=== PATIENT | female | born 1950 | race Caucasian/White ===

== ENCOUNTER 2021-10-30 10:10 | Outpatient (CLI) | payer MEDICARE, SELFPAY ==
--- NOTE | 2021-10-30 10:27 | MM_ITS ---
WS: [id number] Bilateral screening 3D tomosynthesis digital mammogram, 10/30/2021 Clinical Data: SCREENING Comparison: 04/02/2016, 04/22/2013. Findings: The breast parenchymal pattern shows heterogeneous density. No spiculated masses or clustered calcifi cations are seen. There are no secondary signs of carcinoma. MM/[place] [id number] Impression: 1. Negative bilateral mammogram unchanged. 2. Recommend annual screening mammograms. BIRADS: 1-Negative FOLLOW UP: 1 Year Follow-up The CAD checker in was used.
== END 2021-10-30 10:11 | disposition home or self-care (01) ==
LOC: RAD 10:13
PROVIDERS: Family Provider Family Medicine; Visit Provider Family Medicine
DX: Z12.31 Encounter for screening mammogram for malignant neoplasm of breast (principal)
CPT/HCPCS: 77063; 77067

== ENCOUNTER → 2022-04-07 15:06 | Outpatient (BNVA) | payer MEDICARE, SELFPAY | PROVIDERS: Visit Provider Specialist | DX: M25.562 Pain in left knee (principal) | CPT/HCPCS: 73560; 73565; 99204 ==

== ENCOUNTER 2022-06-22 09:13 | Emergency (ER) | payer MEDICARE, SELFPAY ==
[2022-06-22] VITALS (15 sets, daily range): BP systolic 123–142; BP diastolic 73–94; PULSE 65–82; RESP 15–22; TEMP 36.7; O2SAT 95–99
--- NOTE | 2022-06-22 09:27 | CTR_ITS ---
PROCEDURE INFORMATION: Exam: CT Head Without Contrast Exam date and time: 06/22/2022 9:33 AM Age: 71 years old Clinical indication: Injury or trauma; Fall; Blunt trauma (contusions or hematomas); Additional info: Fall with memory loss TECHNIQUE: Imaging protocol: Computed tomography of the head without contrast. Radiation optimization: All CT scans at this facility use at least one of these dose optimization techniques: automated exposure control; mA and/or kV adjustment per patient size (includes targeted exams where dose is matched to clinical indication); or iterative reconstruction. COMPARISON: No relevant prior studies available. RADIATION DOSE METRICS: Total DLP (mGy-cm): 1077.48 FINDINGS: Brain: Incidental left globus pallidus mild calcification. No hemorrhage. Unremarkable white matter. No mass effect. Ventricles: No hydrocephalus or evidence of increased intracranial pressure. Paranasal sinuses: Visualized sinuses are unremarkable. No fluid levels. Mastoid air cells: Visualized mastoid air cells are well aerated. Bones/joints: No acute abnormality. No acute fracture. Soft tissues: Unremarkable. Vasculature: Atherosclerotic calcifications are present involving the carotid artery siphons bilaterally and the right vertebral artery. CT/CT head wo con* [id number] IMPRESSION: No acute intracranial injury identified.
--- NOTE | 2022-06-22 09:34 | CTR_ITS ---
PROCEDURE INFORMATION: Exam: CT Cervical Spine Without Contrast Exam date and time: 06/22/2022 9:37 AM Age: 71 years old Clinical indication: Injury or trauma; Fall; Blunt trauma TECHNIQUE: Imaging protocol: Computed tomography of the cervical spine without contrast. Radiation optimization: All CT scans at this facility use at least one of these dose optimization techniques: automated exposure control; mA and/or kV adjustment per patient size (includes targeted exams where dose is matched to clinical indication); or iterative reconstruction. COMPARISON: CT head wo con* [id number] 06/22/2022 9:33 AM RADIATION DOSE METRICS: Total DLP (mGy-cm): 179.14 FINDINGS: Bones/joints: No fracture. Mild left predominant posterolateral C2-C3 spondylosis. Moderately severe left C2-C3 neural foraminal narrowing. Moderate left C3-C4 neural foraminal narrowing (uncovertebral). Slight C3-C4 anterolisthesis. Mild right predominant C4-C5 spondylosis. Moderately severe bilateral C4-C5 neural foraminal narrowing. C5-6 degenerative disc disease with moderate C5-C6 spondylosis. Severe bilateral C5-C6 neural foraminal narrowing. C6-7 degenerative disc disease with severe C6-C7 spondylosis. The C6-C7 AP bony spinal canal measures 9.9 mm. Moderately severe bilateral C6-C7 neural foraminal narrowing. Lungs: Lung apices are normal. Thyroid: Left thyroid hypodensity measuring 9.7 mm. No specific follow-up imaging is recommended. Soft tissues: Unremarkable. CT/CT cervical spin wo con* [id number] IMPRESSION: 1. Degenerative changes as above. 2. No acute cervical spinal bony injury identified.
--- NOTE | 2022-06-22 09:45 | PC.NURSE ---
ESCORTED PT TO AND FROM CT VIA WC.
--- NOTE | 2022-06-22 09:53 | ECG_ITS ---
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 Measurements Intervals [place] Rate: 59 P: 61 OR: 141 QRS: 54 QRSD: 92 T: 64 QT: 387 QTc: 385 Interpretive Statements SINUS BRADYCARDIA No previous ECG available for comparison Electronically Signed On 06-24-2022 7:46:22 ENGRAVER MACHINE by Breezy Hinds M.D. [id number]
--- NOTE | 2022-06-22 10:04 | W.ED.FALL ---
HPI - Fall General: Chief Complaint: Fall Stated Complaint: fall, confusion, lack of memory Time Seen by Provider: 06/22/22 09:56 History of Present Illness: 71-year-old female who presents after a fall. Reportedly the patient fell off a stepstool in her laundry room. The patient did hit her head. She unknown whether she had loss of consciousness. She is amnestic to everything this morning. She complains of a headache but denies any other complaints. She was ambulatory after the event. No prior history of syncope. Review of Systems Narrative: Headache, otherwise negative as per HPI Physical Exam Const: COMMON NORMALS: no acute distress, patient oriented x3 and alert ORIENTATION/CONSCIOUSNESS: Yes oriented to person, Yes oriented to place and Yes oriented to time HENMT: OTHER: Hematoma at the posterior upper scalp area, tenderness in this region. No hemotympanum. Oropharynx is clear. No malocclusion. Eye: OTHER: Pupils equal, round and reactive to light. Extraocular movements are intact. Neck/C-Spine: OTHER: No midline tenderness, no pain with range of motion. Chest: OTHER: Chest is nontender Resp: OTHER: Normal respiratory effort, breath sounds are equal. Cardio: OTHER: Heart rate is regular GI: OTHER: Abdomen is soft, nontender. Back/Pelvis: OTHER: Pelvis is stable and nontender. No thoracic or lumbar spine tenderness. Extremity: OTHER: Small area of abrasion/ecchymosis on the tip of the left elbow, full range of motion of both upper extremities without discomfort. Bilateral lower extremities are nontender with full range of motion. Neuro: COMMON NORMALS: patient oriented x3, moves all extremities, no focal motor deficits and no sensory deficits noted SENSORIUM/ORIENTATION: Yes alert, Yes oriented to person, Yes oriented to place and Yes oriented to time Course Vital Signs: Vital signs: Vital Signs Temperature 98.1 F 06/22/22 09:19 Pulse Rate 65 06/22/22 10:00 Respiratory Rate 21 H 06/22/22 10:00 Blood Pressure 142/94 06/22/22 10:00 Pulse Oximetry 96 06/22/22 10:00 Oxygen Delivery Me thod 06/22/22 09:19 MDM - Fall Medical Decision Making 71 female who presents after falling off a stool. Unknown if she had loss of consciousness. Patient is amnestic to the event. She does have short-term memory loss as well as repetitive questioning. Neurologic exam is otherwise intact. She is alert and oriented x3. She has a hematoma on the posterior scalp scalp but no other injury. She has no C-spine tenderness. Differential includes closed head injury, skull fracture, intracranial hemorrhage, subdural hematoma, epidural hematoma, seizure, syncope. she had an EKG performed which is unremarkable, CBC and CMP are unremarkable. Glucose is normal. CT head shows no acute injury. CT of her cervical spine shows some degenerative changes but no acute fracture. Patient is neurologically intact other than her memory loss and I feel stable for discharge home with head injury precautions. Lab Data 06/22/22 09:57 06/22/22 09:[address] 06/22/22 09:27 IMPRESSION: No acute intracranial injury identified. Cervical Spine CT 06/22/22 09:34 IMPRESSION: 1. Degenerative changes as above. 2. No acute cervical spinal bony injury identified. Laboratory Results WBC 5.9 10^3/uL (4.0-10.0) 06/22/22 09:57 RBC 4.38 10^6/uL (4.1-5.3) 06/22/22 09:57 Hgb 13.8 g/dL (11.5-15.3) 06/22/22 09:57 Hct 43.3 % (37.0-47.0) 06/22/22 09:57 MCV 98.9 fl (81-99) 06/22/22 09:57 MCH 31.5 pg (28.0-34.0) 06/22/22 09:57 MCHC 31.9 g/dL (30.0-36.0) 06/22/22 09:57 RDW 11.5 % (12.1-15.1) L 06/22/22 09:57 Plt Count 188 10^3/cmm (130-400) 06/22/22 09:57 MPV 11.4 fL (7.4-10.4) H 06/22/22 09:57 Neut % (Auto) 70.0 % 06/22/22 09:57 Lymph % (Auto) 20.7 % 06/22/22 09:57 [place] % (Auto) 5.9 % 06/22/22 09:57 Eos % (Auto) 2.2 % 06/22/22 09:57 Baso % (Auto) 0.7 % 06/22/22 09:57 Neut # (Auto) 4.12 10^3/uL (1.8-7.7) 06/22/22 09:57 Lymph # (Auto) 1.2 10^3/uL (0.8-4.8) 06/22/22 09:57 [place] # (Auto) 0.4 10^3/uL (0.2-0.9) 06/22/22 09:57 Eos # (Auto) 0.1 10^3/uL (0.0-0.8) 06/22/22 09:57 Baso # (Auto) 0.0 10^3/uL (0.0-0.1) 06/22/22 09:57 Nucleated RBC % (auto) 0 % 06/22/22 09:57 Nucleated RBCs # 0.0 /100WBC 06/22/22 09:57 Sodium 140 mmol/L (136-145) 06/22/22 09:57 Potassium 4.0 mmol/L (3.5-5.1) 06/22/22 09:57 Chloride 104 mmol/L (98-107) 06/22/22 09:57 Carbon Dioxide 26 mmol/L (22-29) 06/22/22 09:57 Anion Gap 14.0 (5-19) 06/22/22 09:57 BUN 13 mg/dL (8-23) 06/22/22 09:57 Creatinine 0.7 mg/dL (0.5-0.9) 06/22/22 09:57 GFR Calculation Not Reportable 06/22/22 09:57 Glucose 97 mg/dL (65-115) 06/22/22 09:57 Calculated Osmolality 290 mOsm/kg (285-295) 06/22/22 09:57 Calcium 9.5 mg/dL (8.5-10.5) 06/22/22 09:57 Total Bilirubin 0.4 mg/dL (0.15-1.2) 06/22/22 09:57 AST 20 U/L (0-32) 06/22/22 09:57 ALT 15 U/L (0-33) 06/22/22 09:57 Alkaline Phosphatase 74 U/L (35-105) 06/22/22 09:57 Total Protein 7.5 g/dL (6.6-8.7) 06/22/22 09:57 Albumin 4.4 g/dL (3.5-5.2) 06/22/22 09:57 Globulin 3.1 g/dL (1.3-4.6) 06/22/22 09:57 EKG Data EKG 1: I personally reviewed and interpreted this EKG as follows: EKG interpretation date: 06/22/22 EKG interpretation time: 10:00 Interpretation: Normal sinus rhythm, heart rate 59, no ST segment elevation or depression. No ectopy. Discharge Plan Discharge Patient Disposition: Home Clinical Impression: Concussion Condition: Stable Prescriptions: No Action No Known Home Medications Discharge Orders: Discharge ED (Routine); Ordered 06/22/22 Ordered By: Amanda Irvin Referrals: Anant Odom MD [Primary Care Provider] - Discharge Diet: Advance as tolerated Discharge Activity: Increase activity as tolerated Patient Instructions: Concussion/Head Injury - Adult, Post Concussion Syndrome (ED), Opioid Safety, Pain Management Activity Restrictions/Additional Instructions: Take Tylenol or ibuprofen as needed for headache. Home to rest. Avoid strenuous activity. Return if worsening symptoms, worsening headache, persistent vomiting, any focal neurological deficits. Follow-up this week with your primary care doctor. Coding Level of Care Code ED Visual Lead for Chg Fwd Exam Expanded Problem Focused Medical Decision Making Moderate Complexity
[2022-06-22 10:16] LABS: Basophils % 0.7 %; Eosinophils # 0.1 10^3/uL (0.0-0.8); Eosinophils % 2.2 %; Hematocrit 43.3 % (37.0-47.0); Hemoglobin 13.8 g/dL (11.5-15.3); Lymphocytes # 1.2 10^3/uL (0.8-4.8); Lymphocytes % 20.7 %; Mean Corpuscular HGB Conc 31.9 g/dL (30.0-36.0); Mean Corpuscular Hemoglobin 31.5 pg (28.0-34.0); Mean Corpuscular Volume 98.9 fl (81-99); Mean Platelet Volume 11.4 fL (7.4-10.4); Monocytes # 0.4 10^3/uL (0.2-0.9); Monocytes % 5.9 %; Neutrophils # 4.12 10^3/uL (1.8-7.7); Nucleated Red Blood Cells % 0 %; Platelet Count 188 10^3/cmm (130-400); Red Blood Count 4.38 10^6/uL (4.1-5.3); Red Cell Distribution Width 11.5 % (12.1-15.1); White Blood Count 5.9 10^3/uL (4.0-10.0)
[2022-06-22 10:44] LABS: Alanine Aminotransferase 15 U/L (0-33); Albumin Level 4.4 g/dL (3.5-5.2); Alkaline Phosphatase 74 U/L (35-105); Aspartate Amino Transferase 20 U/L (0-32); Blood Urea Nitrogen 13 mg/dL (8-23); Calcium 9.5 mg/dL (8.5-10.5); Carbon Dioxide 26 mmol/L (22-29); Chloride 104 mmol/L (98-107); Creatinine Clr Calc Pharmacy 49.4536; Globulin 3.1 g/dL (1.3-4.6); Glucose 97 mg/dL (65-115); Osmolality Calculated 290 mOsm/kg (285-295); Sodium 140 mmol/L (136-145); Total Bilirubin 0.4 mg/dL (0.15-1.2); Total Protein 7.5 g/dL (6.6-8.7)
== END 2022-06-22 13:13 | disposition home or self-care (01) ==
PROVIDERS: Physician Assistant; Emergency Provider Emergency Medicine; PCP Family Medicine
DX: S06.0XAA Concussion with loss of consciousness status unknown, initial encounter (principal); W07.XXXA Fall from chair, initial encounter
CPT/HCPCS: 70450; 72125; 80053; 85025; 93005; 99285

== ENCOUNTER 2022-07-26 08:25 | Emergency (ER) | payer MEDICARE, SELFPAY ==
[2022-07-26 08:39] VITALS: BP 133/79; PULSE 87; TEMP 36.7; O2SAT 97; BMI 22.6
--- NOTE | 2022-07-26 09:05 | CTR_ITS ---
PROCEDURE INFORMATION: Exam: CT Head Without Contrast Exam date and time: 07/26/2022 9:53 AM Age: 71 years old Clinical indication: Pain; Headache; Additional info: New onset severe headaches 2 weeks ago, worse in last 12 hrs TECHNIQUE: Imaging protocol: Computed tomography of the head without contrast. Radiation optimization: All CT scans at this facility use at least one of these dose optimization techniques: automated exposure control; mA and/or kV adjustment per patient size (includes targeted exams where dose is matched to clinical indication); or iterative reconstruction. REPORTING DATA: Count of CT and Cardiac NM exams in prior 12 months: This patient has received 3 known CTs and 0 known cardiac nuclear medicine studies in the 12 months prior to the current study. COMPARISON: CT head wo con* [id number] 06/22/2022 9:33 AM RADIATION DOSE METRICS: Total DLP (mGy-cm): 623.85 FINDINGS: Brain: Interval development of moderate-large subacute subdural hematoma adjacent to the left cerebral hemisphere measuring up t 1.7 cm in diameter with diffuse sulcal effacement of the left cerebral hemisphere and 1.1 cm contralateral midline shift to the right. Cerebral ventricles: Ventricles are displaced to the right but otherwise unremarkable. No hydrocephalus. Paranasal sinuses: Visualized sinuses are unremarkable. No fluid levels. Mastoid air cells: Visualized mastoid air cells are well aerated. Bones/joints: Unremarkable. No acute fracture. Soft tissues: Unremarkable. CT/CT head wo con* [id number] IMPRESSION: Interval development of moderate-large subacute left subdural hematoma with significant mass effect and 1.1 cm contralateral midline shift.
[2022-07-26 09:13] VITALS: BP 130/74; PULSE 86; RESP 18; O2SAT 97
--- NOTE | 2022-07-26 09:15 | W.ED.HA ---
HPI - Headache General: Chief Complaint: Headache Stated Complaint: Head pain, previous head injury 3 weeks ago Time Seen by Provider: 07/26/22 08:33 History of Present Illness: 71-year-old female with no significant medical history reports that she has had a headache for 2 weeks. It has not been constant but has been the majority of the time. Over the last 24 hours her headache has increased. She did have a head injury on June 22, 2021. She did not have any findings on a CT scan of her head at that time. She did have amnesia and probable loss of consciousness. Patient reports that she had a headache for few days after the trauma but it resolved. 2 weeks ago it started coming back. She has no history of chronic headaches. She does not have light sensitivity. It is worse with any movement of her head. She has vomited twice. She has normal mental status, strength, coordination, sensation, speech. She denies any changes in her vision. She is not on any blood thinners. She has had no recurrent trauma. Patient has very little medical history. She takes vitamin D. Associated symptoms: Reports nausea and vomiting; Deny chest pain, confusion, fever(s), rash or syncope Review of Systems General: Reports: 10 or more systems reviewed and unremarkable except in HPI and below Const: Denies: fever(s), chills or body aches Eyes: Denies: change in vision ENMT: Denies: throat pain Card: Denies: chest pain, edema or syncope Resp: Denies: dyspnea or productive cough GI: Reports: nausea and vomiting; Denies: abdominal pain, hematemesis or diarrhea : Denies: flank pain, dysuria or urinary frequency Musc: Denies: neck pain, back pain, extremity pain or extremity swelling Skin/Breast: Denies: rash or erythema Neuro: Reports: headache(s), dizziness and difficulty communicating thoughts; Denies: numbness in extremities, weakness in extremities, sensory changes, lack of coordination, difficulty walking, confusion, behavioral changes, Slurred speech present or seizure-like activity Physical Exam Const: COMMON NORMALS: patient oriented x3, no limitations, healthy appearing, alert and well nourished EXAM LIMITATIONS: no altered mental status HENMT: COMMON NORMALS: normocephalic, atraumatic, external ears normal and Normal external nose present HEAD & SCALP: normocephalic and atraumatic NOSE: Normal external nose present and Normal nares present EXTERNAL EAR: Yes external ears normal MOUTH: no muffled voice Eye: COMMON NORMALS: Equal, round and reactive pupils present, EOMs intact bilaterally, conjunctivae normal, no scleral icterus and normal visual dejesus by confrontation CONJUNCTIVA: Yes conjunctivae normal PUPIL: Yes Equal, round and reactive pupils present Neck/C-Spine: COMMON NORMALS: no JVD GENERAL: Yes normal visual inspection and Yes trachea midline Resp: COMMON NORMALS: normal respiratory effort, No use of accessory muscles and clear to auscultation bilaterally AUSCULTATION: clear to auscultation bilaterally Cardio: COMMON NORMALS: no JVD, regular rate and regular rhythm RATE: regular rate RHYTHM: regular rhythm GI: COMMON NORMALS: Soft to palpation and non-tender PALPATION: Yes Soft to palpation and No Guarding due to palpation present (GI) Extremity: COMMON NORMALS: normal to inspection Neuro: COMMON NORMALS: patient oriented x3, CN's II-XII intact bilaterally, moves all extremities, no focal motor deficits and no sensory deficits noted SENSORIUM/ORIENTATION: Yes alert SPEECH: speech normal SENSORY EXAM: No sensory level loss detected MOTOR EXAM: 5/5 motor strength present throughout, no tremor noted, no asterixis, Motor fasciculations not present, Normal motor muscle tone present throughout and Motor abnormalities not present Psych: COMMON NORMALS: mental status grossly normal, Normal thought process present, cooperative, normal affect and speech normal SPEECH: Yes normal speech THOUGHT PROCESS: Normal thought process present Skin: COMMON NORMALS: no rashes or lesions noted, turgor normal and no jaundice GENERAL SKIN EXAM: no rashes or lesions noted and turgor normal Course Vital Signs: Vital signs: Vital Signs Temperature 98.1 F 07/26/22 08:39 Pulse Rate 87 07/26/22 08:39 Blood Pressure 133/79 07/26/22 08:39 Pulse Oximetry 97 07/26/22 08:39 Oxygen Delivery Me thod 07/26/22 08:39 MDM - Headache Medical Decision Making 71-year-old female presents the emergency department with headache. She never had headache prior to the onset of her head injury back on June 22. The headache after her head injury lasted a few days but went away. It came back about 2 weeks ago. She has not had a repeat scan since then. Differential diagnosis includes delayed onset subdural, migraine, postconcussion syndrome, tension headache, aneurysm, dural venous sinus thrombosis, mass, subarachnoid hemorrhage, and multiple others. Update. I was called to the CT scanner. After the CT without contrast was performed, the radiology receptionist noticed a apparent subdural. I reviewed the scan and have noted a subdural up to 15 mm thick with approximately 1 cm of [id number]-fb-caohk shift. There is a subacute appearing gravity dependent portion of blood in the left cerebral convexity. We immediately contacted [facility]. They have excepted to the emergency department. No doc to doc was requested. Dr. House is the accepting physician per the transfer center. Patient will go to the emergency department. She is not anticoagulated. She has GCS 15 with a normal neurologic exam at this time. Fortunately, I do not see any hyperacute blood on CT. Patient and family informed of diagnosis and need for transfer. Lab Data 07/26/22 09:30 07/26/22 09:20 Laboratory Results WBC 8.8 10^3/uL (4.0-10.0) 07/26/22 09:30 RBC 4.22 10^6/uL (4.1-5.3) 07/26/22 09:30 Hgb 13.1 g/dL (11.5-15.3) 07/26/22 09:30 Hct 41.1 % (37.0-47.0) 07/26/22 09:30 MCV 97.4 fl (81-99) 07/26/22 09:30 MCH 31.0 pg (28.0-34.0) 07/26/22 09:30 MCHC 31.9 g/dL (30.0-36.0) 07/26/22 09:30 RDW 11.9 % (12.1-15.1) L 07/26/22 09:30 Plt Count 212 10^3/cmm (130-400) 07/26/22 09:30 MPV 11.0 fL (7.4-10.4) H 07/26/22 09:30 Neut % (Auto) 91.3 % 07/26/22 09:30 Lymph % (Auto) 5.4 % 07/26/22:30 [place] % (Auto) 2.7 % 07/26/22 09:30 Eos % (Auto) 0.0 % 07/26/22 09:30 Baso % (Auto) 0.3 % 07/26/22 09:30 Neut # (Auto) 7.99 10^3/uL (1.8-7.7) H 07/26/22 09:30 Lymph # (Auto) 0.5 10^3/uL (0.8-4.8) L 07/26/22 09:30 [place] # (Auto) 0.2 10^3/uL (0.2-0.9) 07/26/22 09:30 Eos # (Auto) 0.0 10^3/uL (0.0-0.8) 07/26/22 09:30 Baso # (Auto) 0.0 10^3/uL (0.0-0.1) 07/26/22 09:30 Nucleated RBC % (auto) 0 % 07/26/22 09:30 Nucleated RBCs # 0.0 /100WBC 07/26/22 09:30 Sodium 136 mmol/L (136-145) 07/26/22 09:20 Potassium 3.9 mmol/L (3.5-5.1) 07/26/22 09:20 Chloride 99 mmol/L (98-107) 07/26/22 09:20 Carbon Dioxide 24 mmol/L (22-29) 07/26/22 09:20 Anion Gap 16.9 (5-19) 07/26/22 09:20 BUN 15 mg/dL (8-23) 07/26/22 09:20 Creatinine 0.7 mg/dL (0.5-0.9) 07/26/22 09:20 GFR Calculation Not Reportable 07/26/22 09:20 Calcium 9.7 mg/dL (8.5-10.5) 07/26/22 09:20 C-Reactive Protein 3.0 mg/L (0.0-4.9) 07/26/22 09:20 Discharge Plan Discharge Patient Disposition: Transfer to ED Clinical Impression: Subdural hemorrhage Condition: Fair Prescriptions: No Action No Known Home Medications Discharge Orders: Transfer Out of Facility (Order); Ordered 07/26/22 Ordered By: Rafael Crump Referrals: Anant Odom MD [Primary Care Provider] - Coding Level of Care Code ED Roof Mechanic for Chg Fwd
[2022-07-26 09:38] LABS: Basophils % 0.3 %; Hematocrit 41.1 % (37.0-47.0); Hemoglobin 13.1 g/dL (11.5-15.3); Lymphocytes # 0.5 10^3/uL (0.8-4.8); Lymphocytes % 5.4 %; Mean Corpuscular HGB Conc 31.9 g/dL (30.0-36.0); Mean Corpuscular Volume 97.4 fl (81-99); Monocytes # 0.2 10^3/uL (0.2-0.9); Monocytes % 2.7 %; Neutrophils # 7.99 10^3/uL (1.8-7.7); Neutrophils % 91.3 %; Nucleated Red Blood Cells % 0 %; Platelet Count 212 10^3/cmm (130-400); Red Blood Count 4.22 10^6/uL (4.1-5.3); Red Cell Distribution Width 11.9 % (12.1-15.1); White Blood Count 8.8 10^3/uL (4.0-10.0)
[2022-07-26] MEDS: ketorolac 30 mg/mL INJ 15 MG IVP (09:44)
[2022-07-26] MEDS: prochlorperazine 10 mg/2 mL Inj 5 MG IVP (09:45)
[2022-07-26] MEDS: diphenhydrAMINE 50 mg/mL SDV 1mL 25 MG IVP (09:48)
[2022-07-26] MEDS: sodium chloride 0.9% 1,000 ML 999 ML IV (09:49)
[2022-07-26 09:58] LABS: Anion Gap 16.9 (5-19); Blood Urea Nitrogen 15 mg/dL (8-23); Calcium 9.7 mg/dL (8.5-10.5); Carbon Dioxide 24 mmol/L (22-29); Chloride 99 mmol/L (98-107); Glucose 117 mg/dL (65-115); Osmolality Calculated 284 mOsm/kg (285-295); Potassium 3.9 mmol/L (3.5-5.1); Sodium 136 mmol/L (136-145)
[2022-07-26 10:15] LABS: Erythrocyte Sedimentation Rate 8 mm/hr (0-15)
--- NOTE | 2022-07-26 10:15 | PC.NURSE ---
transfer report called to Adeola Quintana RN at [facility]
[2022-07-26 10:30] VITALS: BP 152/98; PULSE 89; O2SAT 98
[2022-07-26] MEDS: acetaminophen 1,000 MG/100 ML PIGGYBACK 400 MG IV (10:54)
== END 2022-07-26 10:59 ==
PROVIDERS: Emergency Provider Emergency Medicine; PCP Family Medicine
DX: S06.5XAA Traumatic subdural hemorrhage with loss of consciousness status unknown, initial encounter (principal); X58.XXXA Exposure to other specified factors, initial encounter
CPT/HCPCS: 70450; 80048; 85025; 85651; 86140; 96374; 96375; 99285; J0131; J0780; J1200; J1885; J7030

== ENCOUNTER 2022-09-04 06:43 | Outpatient (CLI) | payer MEDICARE, SELFPAY ==
--- NOTE | 2022-09-04 | CT_ITS ---
WS: [id number] CT HEAD NONCONTRAST HISTORY: SUBDURAL HEMATOMA TECHNIQUE: Contiguous axial imaging performed through the brain in 2.5 mm imaging. Bone and soft tiss ue windows. Sagittal and coronal reformats reviewed. All CT scans at [facility] use at least one of these dose optimization techniques: automated exposure control; mA and/or kV adjustment per pa tient size (includes targeted exams where dose is matched to clinical indication); or iterative recon struction. DLP: 958.58 mGy.cm COMPARISON: 07/26/2022 Recently described mildly complex LEFT frontal subdural hematoma has resolved. There is no midline sh ift remaining. Linear low-attenuation in the subdural space over the LEFT frontal bone is probably an overlying cortical vein. There are no acute blood products. Mild atrophy and small vessel ischemic disease. Ventricles: Normal size with no hydrocephalus. Paranasal sinuses: As visualized are clear. Mastoid air cells: Well pneumatized. Calvarium and scalp: LEFT frontal leroy hole from the LEFT frontal subdural hematoma drainage. CT/CT head wo con* [id number] IMPRESSION: 1. No acute intracranial hemorrhage or edema. 2. Resolved LEFT frontal subdural mixed hematoma. 3. Resolved midline shift and cerebral edema.
== END 2022-09-04 06:44 | disposition home or self-care (01) ==
LOC: RAD 06:46
PROVIDERS: PCP Family Medicine; Visit Provider Nurse Practitioner Family
DX: S06.5XAA Traumatic subdural hemorrhage with loss of consciousness status unknown, initial encounter (principal); X58.XXXA Exposure to other specified factors, initial encounter
CPT/HCPCS: 70450

== ENCOUNTER 2023-01-16 09:23 | Outpatient (CLI) | payer MEDICARE, SELFPAY ==
--- NOTE | 2023-01-16 09:29 | MM_ITS ---
WS: [id number] Bilateral screening 3D tomosynthesis digital mammogram, 01/16/2023 Clinical Data: SCREENING Comparison: 10/30/2021, 04/02/2016, 04/22/2013. Findings: The breast parenchymal pattern shows heterogeneous density. No spiculated masses or clustered calcifi cations are seen. There are no secondary signs of carcinoma. Impression: 1. Negative bilateral mammogram unchanged. 2. Recommend annual screening mammograms. MM/[place] [id number] BIRADS: 1-Negative FOLLOW UP: 1 Year Follow-up The CAD aircraft delivery checker was used.
== END 2023-01-16 09:24 | disposition home or self-care (01) ==
PROVIDERS: PCP Family Medicine; Visit Provider Family Medicine
DX: Z12.31 Encounter for screening mammogram for malignant neoplasm of breast (principal)
CPT/HCPCS: 77063; 77067

== ENCOUNTER 2024-01-20 08:46 | Outpatient (CLI) | payer MEDICARE, SELFPAY ==
--- NOTE | 2024-01-20 08:55 | MM_ITS ---
WS: [id number] Bilateral screening 3D tomosynthesis digital mammogram, 01/20/2024 Clinical Data: SCREENING Comparison: 01/16/2023, 10/30/2021, 04/02/2016, 04/22/2013. Findings: The breast parenchymal pattern shows heterogeneous density. There is a density in the medial aspect o f the left breast which may be seen on the MLO view posterior to the central tissue density. No spi culated masses or clustered calcifications are seen. There are no secondary signs of carcinoma. MM/[place] [id number] Impression: 1. Density 0.7 cm in the medial aspect of the left breast possibly seen on the LMLO view. 2. Recommend ML view of the left breast, repeat cc view with compression image of the medial aspect of the left breast and left breast ultrasound. BIRADS: 0-Incomplete: Need additional imaging evaluation FOLLOW UP: See Report The CAD lumber checker was used.
== END 2024-01-20 08:47 | disposition home or self-care (01) ==
LOC: RAD 08:49
PROVIDERS: PCP Family Medicine; Visit Provider Family Medicine
DX: Z12.31 Encounter for screening mammogram for malignant neoplasm of breast (principal); R92.323 Mammographic fibroglandular density, bilateral breasts
CPT/HCPCS: 77063; 77067

== ENCOUNTER 2024-03-02 07:47 | Outpatient (CLI) | payer MEDICARE, SELFPAY ==
--- NOTE | 2024-03-02 07:49 | MM_ITS ---
WS: [email or web address] VIEWS: MLO, CC, and ML views LEFT breast. 3D digital tomosynthesis is also included in this exam. Comparison made with prior exam of 04/02/2016, 10/30/2021, 01/16/2023.. Findings: The breasts are heterogeneously dense, which may obscure small masses. Stable appearing nodular densities seen in the medial LEFT breast when compared to prior studies. No suspicious calcification or architectural distortion in the LEFT breast. Regional ultrasound of the m edial LEFT breast recommended for follow-up. MM/MM diag LT tomosynthesis [id number] Impression: BI-RADS: 0 - Incomplete: Need additional imaging evaluation FOLLOW-UP: Need Additional Imaging This mammogram was also analyzed by the Computer Aided Detection System R2 Imag e Forensic Science Technician.
--- NOTE | 2024-03-02 07:49 | US_ITS ---
WS: [email or web address] Exam: US breast LT limited* [id number] Date/Time of Exam: 03/02/2024 8:28 AM Reason For Exam: ABNORMAL MAMMO Regional ultrasound of the LEFT breast is performed from the 6:00 to the 10 o'clock position. There was no sign of suspicious mass or nodule. No cysts were identified. Recommendations: Continue yearly screening mammography. US/US breast LT limited* [id number] IMPRESSION: 1. No suspicious ultrasound finding in the LEFT breast from the 6:00 to the 10 o'clock position. BI-RADS Category 3.
== END 2024-03-02 07:48 | disposition home or self-care (01) ==
LOC: RAD 07:47
PROVIDERS: PCP Family Medicine; Visit Provider Family Medicine
DX: R92.8 Other abnormal and inconclusive findings on diagnostic imaging of breast (principal); R92.333 Mammographic heterogeneous density, bilateral breasts; N63.25 Unspecified lump in the left breast, overlapping quadrants
CPT/HCPCS: 76642; 77061; G0279

== ENCOUNTER → 2024-03-08 09:45 | Outpatient (BNVA) | payer MEDICARE, SELFPAY | PROVIDERS: PCP Family Medicine; Visit Provider Nurse Practitioner Family | DX: L57.0 Actinic keratosis (principal); L82.1 Other seborrheic keratosis; D22.5 Melanocytic nevi of trunk; L81.4 Other melanin hyperpigmentation; L57.8 Other skin changes due to chronic exposure to nonionizing radiation; Z85.828 Personal history of other malignant neoplasm of skin | CPT/HCPCS: 17000; 99203 ==

== ENCOUNTER 2024-09-07 07:43 | Outpatient (CLI) | payer MEDICARE, SELFPAY ==
--- NOTE | 2024-09-07 07:48 | US_ITS ---
WS: [id number] Exam: US breast LT limited* [id number] Date/Time of Exam: 09/07/2024 8:01 AM Reason For Exam: ABNORMAL MAMMO Comparison 03/02/2024. Regional ultrasound of the LEFT breast was performed from the 6:00 to the 10 o'clock position. There was no sign of suspicious solid mass or nodule. No cysts were identified. Recommendations: Continue yearly screening mammography. US/US breast LT limited* [id number] IMPRESSION: 1. No suspicious ultrasound finding identified. BI-RADS Category 2.
== END 2024-09-07 07:44 | disposition home or self-care (01) ==
LOC: RAD 07:45
PROVIDERS: PCP Family Medicine; Visit Provider Family Medicine
DX: R92.8 Other abnormal and inconclusive findings on diagnostic imaging of breast (principal)
CPT/HCPCS: 76642

== ENCOUNTER 2025-03-03 08:19 | Outpatient (CLI) | payer MEDICARE, SELFPAY ==
--- NOTE | 2025-03-03 08:27 | MM_ITS ---
WS: [id number] SCREENING DIGITAL BREAST TOMOSYNTHESIS MAMMOGRAM WITH CAD HISTORY: SCREENING COMPARISON: 03/02/2024, 01/20/2024, 10/30/2021 Bilateral CC and MLO with tomosynthesis and synthetic mammography submitted. Computer aided detection analyzed. Breast composition: The breasts are heterogeneously dense, which may obscure small masses. Bilateral scattered asymmetries. Asymmetry in the posterior central RIGHT breast seen on the RIGHT MLO projection. This asymmetry appears slightly more prominent as compared to prior studies. There is an additional irregular asymmetry seen on the LEFT MLO projection in the central breast. Similar asymmetry in the medial posterior LEFT breast may be the corresponding asymmetry. Additional imaging recommended. MM/MM scr BI tomosynthesis [id number] IMPRESSION: BI-RADS: 0 - Incomplete: Need additional imaging evaluation FOLLOW UP: Need Additional Imaging RIGHT breast: Spot compression views (MLO). True ML. Ultrasound to follow if ab normality persists. LEFT breast: Spot compression views (CC and MLO). True ML. Ultrasound to follow if abnormality persists.
== END 2025-03-03 08:20 | disposition home or self-care (01) ==
LOC: RAD 08:20
PROVIDERS: PCP Family Medicine; Visit Provider Family Medicine
DX: Z12.31 Encounter for screening mammogram for malignant neoplasm of breast (principal); R92.333 Mammographic heterogeneous density, bilateral breasts; N64.89 Other specified disorders of breast
CPT/HCPCS: 77063; 77067

== ENCOUNTER → 2025-03-08 08:56 | Outpatient (BNVA) | payer MEDICARE, SELFPAY | PROVIDERS: PCP Family Medicine; Visit Provider Nurse Practitioner Family | DX: L82.1 Other seborrheic keratosis (principal); D18.01 Hemangioma of skin and subcutaneous tissue; L81.4 Other melanin hyperpigmentation; L57.8 Other skin changes due to chronic exposure to nonionizing radiation; R20.2 Paresthesia of skin; Z08 Encounter for follow-up examination after completed treatment for malignant neoplasm; Z85.828 Personal history of other malignant neoplasm of skin; L57.0 Actinic keratosis | CPT/HCPCS: 17000; 99213 ==

== ENCOUNTER 2025-03-28 11:02 | Outpatient (CLI) | payer MEDICARE, SELFPAY ==
--- NOTE | 2025-03-28 11:11 | MM_ITS ---
WS: [id number] ADDITIONAL VIEWS BILATERAL MAMMOGRAM WITH DIGITAL BREAST TOMOSYNTHESIS. LEFT breast ultrasound. HISTORY: INCONCLUSIVE MAMMOGRAM COMPARISON: 03/03/2025, 03/02/2024, 01/20/2024, 01/16/2023 Spot compression views RIGHT and LEFT breasts in CC, MLO projections and true ML submitted with digital breast tomosynthesis and SM. Breast composition: The breasts are heterogeneously dense, which may obscure small masses. RIGHT: The asymmetry in the upper outer quadrant of the RIGHT breast resolves with better positioning and additional spot compression views. LEFT: The asymmetry in the medial LEFT breast towards 9:00 persists measuring 6 x 6 x 7 mm. This asymmetry has been present on prior studies but appears more prominent today. There is also dense fibroglandular tissue in the upper outer quadrant which ultrasound will be performed. LEFT breast ultrasound, limited. No abnormality identified in the LEFT breast in the upper-outer quadrant or in the medial breast. No soft tissue masses. No distortion. MM/MM diag BI tomosynthesis [id number] IMPRESSION: BI-RADS: 2 - Benign FOLLOW UP: 1 Year Follow-up No persistent abnormality identified on additional imaging within either breast . Return to annual screening mammography.
== END 2025-03-28 11:03 | disposition home or self-care (01) ==
LOC: RAD 11:02
PROVIDERS: PCP Family Medicine; Visit Provider Family Medicine
DX: R92.2 Inconclusive mammogram (principal); R92.333 Mammographic heterogeneous density, bilateral breasts; R92.322 Mammographic fibroglandular density, left breast; N64.89 Other specified disorders of breast
CPT/HCPCS: 76642; 77062; G0279